=== PATIENT | male | born 1995 | race Caucasian/White ===

== ENCOUNTER 2018-12-04 09:12 | Emergency (ER) | payer MEDICAID ==
[~2018-12-04] VITALS: Ht 170.2 cm; Wt 66.8 kg
[~2018-12-04 09:12] MED LIST: LEVE500T53 PO
[2018-12-04 09:16] VITALS: BP 139/89
[2018-12-04] MEDS ORDERED: CEFTRIAXONE 250 MG ONE (09:54)
[2018-12-04] MEDS ORDERED: AZITHROMYCIN 250 MG TABLET ONE (09:54)
[2018-12-04] MEDS ORDERED: CEFTRIAXONE 250 MG IM ONE (10:00)
[2018-12-04] MEDS ORDERED: AZITHROMYCIN 250 MG TABLET PO ONE (10:00)
[2018-12-04 10:28] LABS: CULTURE INDICATED? YES; MICROSCOPIC INDICATED
== END 2018-12-04 10:45 | disposition home or self-care (01) ==
LOC: ED 10:06
DX: R30.0 Dysuria (principal)
CPT/HCPCS: 81001; 87077; 87086; 87491; 87591; 96372; 99283; J0696

== ENCOUNTER 2019-08-16 03:35 | Emergency (ER) | payer MEDICAID ==
--- NOTE | 2019-08-16 03:38 | NUR ---
pt walked outside after checking in. not in lobby when called for triage.
--- NOTE | 2019-08-16 03:46 | NUR ---
Pt not in lobby when called for triage.
--- NOTE | 2019-08-16 03:52 | NUR ---
Pt not in lobby when called for triage. Pt LWBS
== END 2019-08-16 04:14 | disposition left against medical advice (07) ==
LOC: ED 04:00
DX: G43.909 Migraine, unspecified, not intractable, without status migrainosus (principal); R04.0 Epistaxis; Z53.21 Procedure and treatment not carried out due to patient leaving prior to being seen by health care provider

== ENCOUNTER 2019-10-10 16:35 | Emergency (ER) | payer MEDICAID ==
[~2019-10-10] VITALS: Ht 167.6 cm; Wt 69.5 kg
[2019-10-10 16:48] VITALS: BP 147/94
[2019-10-10] MEDS ORDERED: AZITHROMYCIN 500 MG TABLET ONE (17:10)
[2019-10-10] MEDS ORDERED: CEFTRIAXONE 250 MG ONE (17:10)
--- NOTE | 2019-10-10 17:57 | NUR ---
PT. WAS GIVEN DISCHARGE INSTRUCTIONS WITH UNDERSTANDING VERBALIZED ALONG WITH WILLINGNESS TO COMPLY. PT.'S UA WAS SENT TO THE LAB. VSS.
[2019-10-10] MEDS ORDERED: AZITHROMYCIN 500 MG TABLET PO ONE (18:00)
[2019-10-10] MEDS ORDERED: CEFTRIAXONE 250 MG IM ONE (18:00)
== END 2019-10-10 18:01 | disposition home or self-care (01) ==
LOC: ED 17:38
DX: R30.0 Dysuria (principal); Z20.2 Contact with and (suspected) exposure to infections with a predominantly sexual mode of transmission
CPT/HCPCS: 96372; 99283; J0696